=== PATIENT | female | born 1960 | race Caucasian/White ===

== ENCOUNTER 2016-04-06 10:33 | Emergency (ER) | payer OTHER ==
[2016-04-06] MEDS ORDERED: OPTIRAY 350 100 ML VIAL HMH IV ONE (10:34)
[2016-04-06] MEDS ORDERED: KETOROLAC 30 MG/ML VIAL ONE (11:12)
== END 2016-04-06 13:13 | disposition home or self-care (01) ==
LOC: ER 10:33
DX: S20.219A Contusion of unspecified front wall of thorax, initial encounter (principal); Y04.8XXA Assault by other bodily force, initial encounter
CPT/HCPCS: 36415; 71260; 80053; 82553; 84484; 85025; 85610; 85730; 96374